=== PATIENT | female | born 1985 | race Caucasian/White ===

== ENCOUNTER → 2020-09-26 | Outpatient (CLI) | payer OTHER ==
[~2020-09-26] MED LIST: FLUO40CA9 PO; LEVO100T5 PO; OXYC1TAB15 PO; PROP80CA3 PO; RIZA10TA PO
== END ==
LOC: LAB 10:59
PROVIDERS: ATTEND Surgery
DX: Z01.812 Encounter for preprocedural laboratory examination (principal); C73 Malignant neoplasm of thyroid gland; Z20.822 Contact with and (suspected) exposure to COVID-19
CPT/HCPCS: U0003; U0005

== ENCOUNTER 2020-09-29 06:08 | Observation (INO) | payer OTHER ==
[2020-09-29] VITALS (13 sets, daily range): BP systolic 94–125; BP diastolic 56–69
[~2020-09-29] VITALS: Ht 160 cm; Wt 84.0 kg
[~2020-09-29 06:08] MED LIST changes: +ACETAMINOPHEN 500 MG TABLET PO PRN; -FLUO40CA9 PO; +HYDROmorphone 2 MG/ML VIAL IVP PRN; +IV RINGERS,LACTATED 1000ML 1,000 ML IV SCH; -LEVO100T5 PO; -OXYC1TAB15 PO; -PROP80CA3 PO; -RIZA10TA PO; +fentaNYL PF VIAL 100 MCG/2 ML VIAL IVP PRN
[2020-09-29] MEDS ORDERED: LIDOCAINE 2% PF 5 ML VIAL. ONE (06:46)
[2020-09-29] MEDS ORDERED: PROPOFOL 10 MG/ML (20ML) VIAL. IV ONE (06:46)
[2020-09-29] MEDS ORDERED: ONDANSETRON PF 4 MG/2 ML VIAL. ONE (06:46)
[2020-09-29] MEDS ORDERED: SUCCINYLCHOLINE 200 MG/10 ML VIAL. ONE (06:46)
[2020-09-29] MEDS ORDERED: DEXAMETHASONE SOD PHOS 20 MG/5 ML VIAL. ONE (06:46)
[2020-09-29] MEDS ORDERED: MIDAZOLAM HCL/PF 2 MG/2 ML VIAL. ONE ×2 (06:47→07:11)
[2020-09-29] MEDS ORDERED: PROP80CA3 PO (06:53)
[2020-09-29] MEDS ORDERED: RIZA10TA PO (06:53)
[2020-09-29] MEDS ORDERED: FLUO40CA9 PO (06:53)
[2020-09-29] MEDS ORDERED: REMIFENTANIL 1 MG VIAL. IV ONE ×2 (07:03→08:58)
[2020-09-29] MEDS ORDERED: ROCURONIUM 50 MG/5 ML VIAL. ONE (07:04)
[2020-09-29] MEDS ORDERED: fentaNYL PF VIAL 100 MCG/2 ML VIAL ONE ×2 (07:11→09:48)
[2020-09-29] MEDS ORDERED: BUPIVACAINE-EPI 0.25% 30 ML VIAL KIT. ONE (07:12)
[2020-09-29] MEDS ORDERED: SEVOFLURANE 61 TO 120 MINUTES. IH ONE (08:08)
[2020-09-29] MEDS ORDERED: PROPOFOL 100 ML IV ONE (08:32)
--- NOTE | 2020-09-29 09:34 | PDOC4 ---
Operative Note Operative Note Date: September 292020 at 09 30 Preoperative diagnosis: Thyroid nodules FNA proven papillary carcinoma Postoperative diagnosis: Same Procedure: Total thyroidectomy Surgeon: Den Elevating Grader Operator surgeon: Noah Specimen: Thyroid Dictation: Patient is a 35-year-old female was found to have bilateral nodules of the thyroid underwent FNA and found to have papillary carcinoma one of the nodules. The procedure total thyroidectomy was explained to the patient detail risk benefits were also discussed including bleeding infection injury to the recurrent laryngeal nerves alternatives to this procedure also discussed with the patient who seemed to understand and gave both verbal and written consent to have the procedure performed. Patient was taken to the operating room placed the supine position general anesthesia was initiated once patient was asleep and intubated her neck was prepped and draped usual sterile fashion using ChloraPrep. Area on the anterior surface of the neck was injected with quarter percent Marcaine with epinephrine incision was made with 15 blade scalpel is carried down through the subcutaneous tissue using electrocautery right hemostasis through the platysmas muscle down to the strap muscles a superior flap was propagated with blunt and sharp dissection as well as an inferior flap dissected with sharp and blunt dissection down to the sternal notch. A Mahorner retractor was then placed the strap muscles in the midline were incised with electrocautery this carried down to the thyroid tensions were first turned to the left thyroid the strap muscles were taken off the thyroid with electrocautery sharp dissection and blunt dissection. Attention was then turned to the superior pole superior pole vessels were encircled with a right angle clamp and tied with a 3-0 Vicryl as well as a medium clip. The vessels were then transected tension was then turned to the inferior pole similarly the vessels were tied and transected the thyroid was then dissected towards the midline. The recurrent laryngeal nerve was visualized and tested with the Nims stimulator. The nerve was protected as the thyroid continued to be dissected off the trachea through Davis's ligament. Once this was done to the midline tensions were then turned to the right thyroid dissection was similarly undertaken with the superior and inferior poles ligated with Vicryl. Similarly on the right side the recurrent laryngeal nerve was visualized stimulated with the Nims stimulator protected from dissection as the thyroid on the right side was dissected medially to the midline and removed using the harmonic scalpel. The specimen was marked with 2 sutures a long suture in the right superior pole and a short suture in the left inferior pole and sent for pathology. The wound was irrigated suctioned dry hemostasis deemed be appropriate and the midline strap muscles were closed with a running 3-0 Vicryl the platysma muscle was reapproximated with single interrupted 3-0 Vicryl's skin was reapproximated 4-0 subcuticular Monocryl Mastisol Steri-Strips and island dressing were applied. Patient was awakened and extubated in the operating room taken to recovery in stable condition all sponge instrument needle counts listed as correct estimated blood loss 20 mL BERNARD TIMMONS MD September 29, 2020 09:34
[2020-09-29] MEDS ORDERED: MORPHINE SULFATE 2 MG/ML VIAL. IV PRN (09:45)
[2020-09-29] MEDS ORDERED: oxyCODONE/APAP 5/325 1 TAB TABLET PO PRN (09:45)
[2020-09-29] MEDS ORDERED: ONDANSETRON PF 4 MG/2 ML VIAL. IV PRN (09:45)
[2020-09-29] MEDS ORDERED: 0.9 % SODIUM CHLORIDE 10 ML DISP.SYRIN. IV PRN (09:45)
[2020-09-29] MEDS: fentaNYL PF VIAL 100 MCG/2 ML VIAL IVP PRN ×2 (09:49→10:01)
[2020-09-29] MEDS ORDERED: PROCHLORPERAZINE 10 MG/2 ML VIAL. ONE (09:52)
[2020-09-29] MEDS: PROCHLORPERAZINE 10 MG/2 ML VIAL. IVP PRN ×2 (09:55→10:01)
[2020-09-29] MEDS: MORPHINE SULFATE 2 MG/ML VIAL. IVP PRN ×2 (10:01→10:20)
[2020-09-29] MEDS ORDERED: MORPHINE SULFATE 2 MG/ML VIAL. ONE (10:08)
--- NOTE | 2020-09-29 11:00 | NUR ---
upon arrival to the floor from recovery; complaining of severe migraine. she was mildly nauseated and photosensitive. room darkened at bedside. voice is whisper. dressing to anterior neck is clean dry and intact. will give home meds when available for her migraine.
[2020-09-29] MEDS: KETOROLAC 15 MG/ML VIAL. IV SCH ×3 (11:52→23:57)
[2020-09-29] MEDS: IV DEXTROSE 5%-LACT RINGERS 1,000 ML IV SCH (11:57)
--- NOTE | 2020-09-29 14:00 | NUR ---
awake states she is feeling better. explained would be giving her Toradol on schedule--"helped her migraine" resting quietly. remains at bedside. ambulated to the bathroom and voided.
[2020-09-30] MEDS: IV DEXTROSE 5%-LACT RINGERS 1,000 ML IV SCH (01:44)
[2020-09-30 03:00] VITALS: BP 109/63
[2020-09-30] MEDS ORDERED: LEVOTHYROXINE 100 MCG TABLET PO SCH (06:00)
[2020-09-30] MEDS: KETOROLAC 15 MG/ML VIAL. IV SCH ×2 (06:07→12:00)
[2020-09-30] MEDS: oxyCODONE/APAP 5/325 1 TAB TABLET PO PRN ×2 (06:07→12:36)
[2020-09-30 06:27] VITALS: BP 111/71
--- NOTE | 2020-09-30 09:00 | NUR ---
Ambulating in room with steady gait. No c/o at this time. Cont. monitor.
[2020-09-30] MEDS ORDERED: OXYC1TAB15 PO (09:13)
[2020-09-30] MEDS ORDERED: LEVO100T5 PO (09:13)
--- NOTE | 2020-09-30 09:16 | DISCH ---
DISCHARGE INSTRUCTIONS Condition on Discharge Condition on Discharge: Stable Activity After Discharge Activity Instructions for Disc: Resume previous activity Driving Instructions after Dis: Do not drive today Diet after Discharge Diet after Discharge: Regular Wound Incision Care Wound/Incision Care: May get incision wet, No wound care needed Contacting the after DC Call your doctor for: Concerns you may have Follow-Up Follow up with: Dr Crenshaw as scheduled, call [phone] for questions Follow Up With: PCP for lab check VERENA VILLANUEVA APRN September 30, 2020 09:16
--- NOTE | 2020-09-30 09:18 | PDOC ---
SURGICAL PROGRESS NOTE DATE: 09/30/20 TIME: 09:16 Subjective ready to go home feels better tolerating diet voice strong Vital Signs Vital Signs Date Time Temp Pulse Resp B/P (MAP) Pulse Ox O2 Delivery O2 Flow Rate FiO2 09/30/20 07:34 Room Air 09/30/20 06:37 18 09/30/20 06:27 98.3 76 111/71 (84) 97 98.3 09/29/20 14:35 2.0 I&O Intake and Output 09/30/20 07:00 Intake Total 3280 ml Output Total 1590 ml Balance 1690 ml Intake Oral 1480 ml IV Total 1800 ml Output Urine Total 1570 ml Estimated Blood Loss 20 ml # Voids 2 General: Alert, Oriented X3, Cooperative HEENT: Other (incision intact, no ecchymosis or swelling) Labs Laboratory Tests Test 09/29/20 05:38 Bedside Urine HCG, Qualitative Hcg negative (Negative) Assessment/Plan s/p total thyroidectomy will DC home Justicifation of Admission Dx: Justifications for Admission: Justification of Admission Dx: Yes Comments: papillary carcinoma VERENA VILLANUEVA [employer]IVE [employer]CON[employer]CH[employer]IC September 30, 2020 09:18
--- NOTE | 2020-09-30 13:00 | NUR ---
Discharge instructions given and prescriptions sent via electronic to pharmacy. Answered questions and concerns. Verbalized understanding. Pain pill given prior to discharge. Pt dc'd home accompanied by spouse. Escorted by transportation via w/c.
--- NOTE | 2020-10-03 14:11 | PATHOLOGY ---
[facility] Accession Number: [id number] . 01 Material submitted: . thyroid gland - THYROID . 01 Clinical history: . PAPILLARY CARCINOMA OF THYROID TOTAL THYROIDECTOMY WITH MMS LONG STITCH RIGHT SUPERIOR POLE,SHORT STICH LEFT INFERIOR POLE 16G PRIOR TO ADDING FORMALING FROM MODULE IN INFERIOR POLE . 02 Diagnosis: Thyroid gland and focal attached skeletal muscle, total thyroidectomy: - Papillary carcinoma of thyroid, forming an infiltrative sclerotic dominant mass of right thyroid lobe and thyroid isthmus,measuring approximately 3.9 cm in greatest dimension. - Tumor involvement of posterior margin of right thyroid lobe. - Tumor is less than 1 mm from the anterior margin and inferior margin of right thyroid lobe, and less than 1 mm from posterior margin of thyroid isthmus. - Papillary carcinoma of left thyroid lobe, consisting of 3 foci of papillary microcarcinoma measuring up to 4 mm in greatest dimension, and focal infiltrative sclerotic papillary carcinoma. - Tumor is less than 1 mm from the posterior margin and anterior margin of resection of left thyroid lobe. - Metastatic papillary carcinoma involving 4 of 7 right lobe and isthmic perithyroidal lymph nodes. - Adenomatous nodules, with focal Hurthle cells changes, right and left thyroid lobes. - No parathyroid glands identified. (JPM:geeta; 10/01/2020) [facility] 10/03/2020 1347 Local . 02 Comment: The case is also examined by Dr. Joseph, who concurs with the diagnoses. (JPM:geeta; 10/03/2020) . . Surgical Pathology Cancer Case Summary . Procedure ___ Total thyroidectomy . Tumor Focality ___ Multifocal . Tumor Site ___ Right lobe ___ Left lobe ___ Isthmus . Tumor Size Greatest dimension: 3.9 cm . Histologic Type Papillary Carcinomas ___ Papillary carcinoma, classic (usual, conventional) . Margins ___ Involved by carcinoma + Site(s) of involvement: Posterior margin of right thyroid lobe . Angioinvasion ___ Not identified . Lymphatic Invasion ___ Not identified . + Perineural Invasion +___ Not identified . Extrathyroidal Extension ___ Not identified . Regional Lymph Nodes Number of Lymph Nodes Involved: 4 . Size of Largest Metastatic Deposit: ___ Specify: 0.3 cm . Extranodal Extension ___ Not identified . Number of Lymph Nodes Examined: 7 . Pathologic Stage Classification (pTNM, AJCC 8th Edition) Primary Tumor (pT) ___ pT2:Tumor >2 cm, but less than or equal to 4 cm in greatest dimension, limited to thyroid . Regional Lymph Nodes (pN) ___ pN1:Metastasis to regional nodes . + Additional Pathologic Findings + ___ Adenomatous nodules + ___ Thyroiditis: Chronic . + Clinical History + ___ Other: Unknown . (JPM:geeta; 10/03/2020) . 02 Electronically signed: . Mark Greco MD, Pathologist NPI- [id number] . 01 Gross description: . The specimen is received in formalin, labeled "Flurry, Maria Isabel, thyroid-long stitch right superior pole, short stitch left inferior pole" and consists of a 16 gm total thyroidectomy specimen oriented as long stitch right superior pole, short stitch left inferior pole. The specimen has the following measurements: Right lobe 4.1 x 2 x 1.6 cm ; Left lobe 3 x 2 x 1.5 cm; and Isthmus 2.5 x 1 x 0.8 cm. There are no lymph nodes or parathyroid tissue present. The specimen is differentially inked as: posterior yellow, inferior red, right anterior blue, left anterior black, and anterior isthmus blue. On sectioning, there is a eid-white unencapsulated mass which measures 3.9 x 2.2 x 1.5 cm and involves 85 % of the right lobe and grossly 0 % of the left lobe. The mass comes to within 0.4 cm of the right inferior margin. With the exception of a possible lesion in cassette A17, there are no additional lesions identified in the otherwise red-brown meaty thyroid parenchyma. Entirely submitted in 20 cassettes. 1-14 Right Lobe submitted superior to inferior with the most inferior in A14 15 Isthmus 16-20 Left Lobe submitted superior to inferior with the most inferior in A20 (including 0.3 cm solid unencapsulated lesion in cassette A17) ([facility]; 09/30/2020) TITO/TITO 10/01/2020 1749 Local . 02 Pathologist provided ICD-10: C73, C77.0 . 02 CPT . 122406, [id number] Specimen Comment: A courtesy copy of this report has been sent to [phone] Specimen Comment: Report sent to Performed at: 01 [facility] [address], [place] [id number] MD Bne Cabrera MD Phone: [phone] Performed at: 02 [facility] [address] [place], [place] [id number] MD Mark Greco MD Phone: [phone]
--- NOTE | 2020-10-07 11:14 | PDOC3 ---
Discharge Summary Visit Information Date of Admission: September 29, 2020 Date of Discharge: September 30, 2020 Admitting Diagnosis: Thyroid nodules FNA proven papillary carcinoma Final Diagnosis Thyroid nodules FNA proven papillary carcinoma Brief Hospital Course Allergies Allergies Coded Allergies Type Severity Reaction Last Updated Verified No Known Drug Allergies 09/29/20 No Brief Hospital Course Ms. Levin is a 35 old female who underwent Total thyroidectomy. Postoperatively pain managed, eating well, and voice strong. Ready for discharge home Discharge Information Condition at Discharge: Stable Follow Up: Weeks (2) Disposition/Orders: D/C to Home Scheduled Fluoxetine Hcl (Prozac) 40 Mg Capsule, 40 MG PO DAILY for depression, (Reported) Entered as Reported by: PRESLEY RAINES on 09/29/20652 Last Taken: Unknown Dose on 09/28/20 Last Action: Last Taken Edited on 09/29/20652 by PRESLEY RAINES Levothyroxine Sodium (Levothyroxine Sodium) 100 Mcg Tablet, 100 MCG PO DAILY06 for hypothyroidism for 30 Days, #30 Prescribed by: Verena Grewal on 09/30/20 09 Propranolol Hcl (Propranolol Hcl) 80 Mg Cap.sa.24h, 120 MG PO DAILY for migraines, (Reported) Entered as Reported by: PRESLEY RAINES on 09/29/20652 Last Taken: Unknown Dose on 09/28/20 Last Action: Last Taken Edited on 09/29/20652 by PRESLEY RAINES Scheduled PRN Oxycodone/Apap 5-325 (Percocet 5-325 Mg Tablet ) 1 Each Tablet, 1 TAB PO PRN Q4HRS PRN for MILD PAIN, 1ST CHOICE, #20 Ref 0 Prescribed by: Verena Grewal on 09/30/20 09 Rizatriptan Benzoate (Maxalt) 10 Mg Tablet, 10 MG PO PRN PRN for MIGRAINE HEADACHE, (Reported) Entered as Reported by: PRESLEY RAINES on 09/29/20652 Last Action: New Order on 09/29/20652 by PRESLEY RAINES Justicifation of Admission Dx: Justifications for Admission: Justification of Admission Dx: Yes VERENA GREWAL APRN Oct 07, 2020 11:14
== END 2020-09-30 13:00 | disposition home or self-care (01) ==
LOC: SURG 06:08 → 4 SOUTHEST 09:34
PROVIDERS: ADMIT Surgery; ATTEND Surgery
DX: E04.2 Nontoxic multinodular goiter (principal); C73 Malignant neoplasm of thyroid gland; Z68.33 Body mass index [BMI] 33.0-33.9, adult; F32.9 Major depressive disorder, single episode, unspecified; G43.909 Migraine, unspecified, not intractable, without status migrainosus; Z79.899 Other long term (current) drug therapy
CPT/HCPCS: 60240; 81025; 88307; 96361; 96374; 96376; A4364; A4556; A4930; A6219; G0378; G0379; J0330; J0690; J0780; J1100; J1885; J2250; J2270; J2405; J2704; J3010; J3490; J7121; A4222; A4452